=== PATIENT | male | born 1940 | race Caucasian/White ===

== ENCOUNTER 2019-05-26 19:36 | Emergency (ER) | payer OTHER ==
[~2019-05-26] VITALS: Ht 180.3 cm; Wt 89.8 kg
[2019-05-26] MEDS ORDERED: LIPITOR20 MG (20:07)
[2019-05-26] MEDS ORDERED: UROXATRAL10 MG PO (20:07)
[2019-05-26] MEDS ORDERED: UNISOM25 MG PO (20:08)
[2019-05-26] MEDS ORDERED: CELEXA20 MG PO (20:08)
[2019-05-26] MEDS ORDERED: QUESTRAN PACKET4 GM (20:08)
[2019-05-26] MEDS ORDERED: NEURONTIN300 MG PO (20:09)
[2019-05-26] MEDS ORDERED: ARNUITY ELLIPT50 MCG IH (20:09)
[2019-05-26] MEDS ORDERED: GEMFIBROZIL600 MG PO (20:10)
[2019-05-26] MEDS ORDERED: HYDROCORT 2.5%-30 GM TP (20:10)
[2019-05-26] MEDS ORDERED: PANTOPRAZOLE SO40 MG PO (20:11)
[2019-05-26] MEDS ORDERED: GLUCOPHAGE XR500 MG PO (20:11)
[2019-05-26] MEDS ORDERED: LISINOPRIL5 MG PO (20:11)
[2019-05-26] MEDS ORDERED: INDERAL XL80 MG PO (20:12)
--- NOTE | 2019-05-27 07:34 | EKG ---
[facility] [address] [place] [address] Signed Normal sinus rhythm Right bundle branch block Abnormal ECG No previous ECGs available Confirmed by JONO TREVIZO MD ([id number] on 05/27/2019 7:33:57 AM Electronically Signed By: JONO TREVIZO MD 05/27/19 0734 PATIENT NAME: MICHA PETERS Electrocardiogram DATE OF : 44 PHYSICIAN: JONO TREVIZO MD REPORT #: [id number] REPORT IS CONFIDENTIAL AND NOT TO BE RELEASED WITHOUT AUTHORIZATION
== END 2019-05-26 22:29 | disposition home or self-care (01) ==
LOC: ED 19:36
DX: S06.0X9A Concussion with loss of consciousness of unspecified duration, initial encounter (principal); W19.XXXA Unspecified fall, initial encounter; E11.9 Type 2 diabetes mellitus without complications; I10 Essential (primary) hypertension; Z87.891 Personal history of nicotine dependence; Z79.899 Other long term (current) drug therapy; Z79.84 Long term (current) use of oral hypoglycemic drugs
CPT/HCPCS: 70450; 72125; 80053; 81001; 83735; 84484; 85025; 93005; 93010; 99284-25